=== PATIENT | male | born 1960 | race American Indian/Alaskan Native ===

== ENCOUNTER 2021-01-01 06:16 | Day surgery (SDC) | payer OTHER ==
[~2021-01-01 06:16] MED LIST: Dextrose 5%-0.45% NaCl 1,000 ML IV SCH; Sodium Chloride 0.9% 10 ML Syringe FLUSH PRN
[2021-01-01] MEDS ORDERED: Midazolam 1 MG/ML 2 ML SDV IV ONE ×7 (06:17→07:47)
[2021-01-01] MEDS ORDERED: fentaNYL 100 MCG/2 ML SDV IV ONE ×3 (06:17→07:35)
[2021-01-01] MEDS ORDERED: fentaNYL 100 MCG/2 ML SDV ONE (06:27)
[2021-01-01] MEDS ORDERED: Midazolam 1 MG/ML 2 ML SDV ONE (06:27)
--- NOTE | 2021-01-01 08:26 | OR ---
DATE: 01/01/2021 PROCEDURES: Total colonoscopy, narrow band imaging and cold snare polypectomy. INSTRUMENT USED: PCF-H190DL Olympus video colonoscope. PREMEDICATIONS: Fentanyl 100 mcg intravenous, Versed 3.5 mg intravenous. Nasal O2 cannula. The procedure was done under pulse oximetry, BP recording, and heavy equipment field mechanic. INDICATION: The patient with Hemoccult positive stools. Colonoscopic examination is done for detection of any polypoid lesions and removal, endoscopic hemostasis therapy if needed. DESCRIPTION OF PROCEDURE: Initial rectal exam was unremarkable. Rigid anoscopy was normal. The colonoscope was passed with ease. In the proximal sigmoid colon, diminutive benign-appearing polyp was noted, NBI view was obtained. Photograph was taken, cold snare polypectomy was done and the tissue was retrieved and sent for histopathology. The scope was passed with ease up to the ileocecal area. Photographs were taken of the normal-appearing cecum, identified by landmarks of appendiceal orifice and double-bulged ileocecal folds. No bleeding was noted from any of the visualized areas at the commencement of the examination. No stricture. No vascular ectasia. No large isolated ulcerations seen. No evidence of diffuse inflammatory bowel disease in the form of friability, contact bleeding, or ulcerations. Probing the proximal sides of folds and flexures using adequate distention and clearing up the stool material, withdrawal of the scope was made, cecum to rectum time over 6 minutes. No bleeding was noted from any of the visualized areas at the completion of examination. IMPRESSION: Diminutive sigmoid polyp. The patient tolerated the procedure well. [facility] /[id number]
--- NOTE | 2021-01-01 09:11 | LETTER ---
01/01/2021 RE: CLINT LEI : 1960 Estefani Gonzalez NP [facility] [address] [place] [address] Dear Ms. Gonzalez: Mr. Clint Lei had colonoscopic examination done this morning, and he tolerated the procedure well. I herewith send a copy of the endoscopy note and photographs for your review. Thank you. Sincerely, [facility] /[id number]
[2021-01-01 10:12] VITALS: BP 168/89; PULSE 85
== END 2021-01-01 09:58 | disposition home or self-care (01) ==
LOC: DL.ENDO 06:16
PROVIDERS: ATTEND Internal Medicine Gastroenterology
DX: D12.5 Benign neoplasm of sigmoid colon (principal); E11.9 Type 2 diabetes mellitus without complications; I10 Essential (primary) hypertension; E78.5 Hyperlipidemia, unspecified; D64.9 Anemia, unspecified; F17.210 Nicotine dependence, cigarettes, uncomplicated
CPT/HCPCS: 45385; J2250; J3010; J7042